=== PATIENT | female | born 1945 | race Caucasian/White ===

== ENCOUNTER 2016-08-07 23:00 | Emergency (ER) | payer MEDICARE, BC ==
[~2016-08-07] VITALS: Ht 149.9 cm; Wt 63.5 kg
[~2016-08-07 23:00] MED LIST: CEPH-570 PO; HYDR-3326 PO; MEDR2.5T PO; [UNRECOGNIZED DRUG - CODE] PO
[2016-08-07 23:12] VITALS: BP 135/75
== END 2016-08-08 00:50 | disposition home or self-care (01) ==
LOC: ER 23:03
DX: B86 Scabies (principal); I10 Essential (primary) hypertension; M81.0 Age-related osteoporosis without current pathological fracture
CPT/HCPCS: 99281; A4606; Z7502; Z7610

== ENCOUNTER 2016-08-24 19:26 | Emergency (ER) | payer MEDICARE, BC ==
[~2016-08-24] VITALS: Ht 175.3 cm; Wt 47.6 kg
[2016-08-24 19:43] VITALS: BP 112/56
--- NOTE | 2016-08-24 20:16 | NUR ---
PT WAS NOT IN ER BED OR BATHROOMS WHEN I WENT TO DISCHARGE HER. PT ELOPED FROM FACILITY.
== END 2016-08-24 20:21 | disposition left against medical advice (07) ==
LOC: ER 19:29
DX: L29.9 Pruritus, unspecified (principal); F41.9 Anxiety disorder, unspecified; F10.20 Alcohol dependence, uncomplicated; B86 Scabies
CPT/HCPCS: 99283; A4606; Z7610

== ENCOUNTER 2017-11-22 20:24 | Emergency (ER) | payer MEDICARE, BC ==
[~2017-11-22] VITALS: Ht 149.9 cm; Wt 45.4 kg
[~2017-11-22 20:24] MED LIST changes: -HYDR-3326 PO; +HYDR-3974 PO
[2017-11-22 20:32] VITALS: BP 169/91
== END 2017-11-22 22:34 | disposition home or self-care (01) ==
LOC: ER 20:26
DX: S92.425A Nondisplaced fracture of distal phalanx of left great toe, initial encounter for closed fracture (principal); S91.111A Laceration without foreign body of right great toe without damage to nail, initial encounter; S90.122A Contusion of left lesser toe(s) without damage to nail, initial encounter; E78.5 Hyperlipidemia, unspecified; F10.10 Alcohol abuse, uncomplicated; Y90.9 Presence of alcohol in blood, level not specified; Z90.49 Acquired absence of other specified parts of digestive tract; Z85.038 Personal history of other malignant neoplasm of large intestine; Z90.89 Acquired absence of other organs; W20.8XXA Other cause of strike by thrown, projected or falling object, initial encounter; Y93.89 Activity, other specified; Y92.89 Other specified places as the place of occurrence of the external cause; Y99.8 Other external cause status
CPT/HCPCS: 73630; 99284; A4606; Z7610

== ENCOUNTER 2017-11-29 21:10 | Emergency (ER) | payer MEDICARE, BC ==
[~2017-11-29] VITALS: Ht 149.9 cm; Wt 46.7 kg
--- NOTE | 2017-11-29 21:25 | NUR ---
PT BBSELF C/C LIGHTHEADED X COUPLE HRS, NOTICED BRIGHT RED BLOOD WHEN WIPING SELF TODAY. PT NOT SURE IF HEMORRHOIDS OR VB, DENIES ANY N/V/D. PT STATES GENERAL ABD DISCOMFORT NON RADIATING. PT IS AAOX4. SKIN WNL. NO S/S OF ACUTE DISTRESS NOTED. RESP EVEN AND UNLABORED. PT PLACED ON TRANSLATOR AND POX. PT SAFETY AND COMFORT MEASURES IN PLACE AWAITING MD FOR EVAL.
[2017-11-29 21:55] LABS: BASOPHILS # (AUTO) 0.1 /CMM (0.0-0.2); EOSINOPHILS % (AUTO) 1.7 % (0.0-6.0); HEMATOCRIT 42 % (33-45); LYMPHOCYTES # (AUTO) 2.3 /CMM (0.8-4.8); LYMPHOCYTES % (AUTO) 26.8 % (20.0-44.0); MEAN CORPUSCULAR HEMOGLOBIN 29 PG (26.0-33.0); MEAN CORPUSCULAR HGB CONC 33 g/dl (31.0-36.0); MEAN CORPUSCULAR VOLUME 87 fL (82-100); MONOCYTES # (AUTO) 0.6 /CMM (0.1-1.30); MONOCYTES % (AUTO) 7.3 % (2.0-12.0); NEUTROPHILS # (AUTO) 5.3 /CMM (1.8-8.9); NEUTROPHILS % (AUTO) 63.2 % (43.0-81.0); PLATELET COUNT (AUTO) 294 /CMM (150-450); RDW COEFFICIENT OF VARIATION 13.3 (11.5-15.0); RED BLOOD CELL COUNT(AUTO) 4.86 MIL/uL (4.0-5.2); WHITE BLOOD COUNT (AUTO) 8.4 K/uL (4.3-11.0)
[2017-11-29] MEDS ORDERED: IV NS 0.9% 500 ML BAG IV ONE (22:00)
[2017-11-29 22:08] LABS: CARBON DIOXIDE 29 mmol/L (21-32); CHLORIDE 101 mmol/L (98-107); CREATININE 0.7 mg/dL (0.6-1.3); GLUCOSE 88 mg/dL (74-106); POTASSIUM 4.1 mmol/L (3.5-5.1); SODIUM SERUM 137 mmol/L (136-145); UREA NITROGEN, BLOOD 10 mg/dL (7-18)
[2017-11-29 22:10] LABS: INR 0.9 (0.87-1.13)
[2017-11-29 22:13] LABS: ALANINE AMINOTRANSFERASE 16 U/L (12-78); ALBUMIN 4.1 g/dL (3.4-5.0); ALKALINE PHOSPHATASE 75 U/L (46-116); ASPARTATE AMINOTRANSFERASE 20 U/L (15-37); BILIRUBIN,DIRECT 0.1 mg/dL (0.0-0.2); BILIRUBIN,TOTAL 0.3 mg/dL (0.2-1.0); LIPASE 213 U/L (73-393); TOTAL PROTEIN, SERUM 7.9 g/dL (6.4-8.2)
[2017-11-29 22:15] LABS: TROPONIN I < 0.017 ng/mL (0.00-0.056)
[2017-11-29 22:45] VITALS: BP 144/76
== END 2017-11-29 22:46 | disposition home or self-care (01) ==
LOC: ER 21:11
DX: N93.8 Other specified abnormal uterine and vaginal bleeding (principal); S92.491D Other fracture of right great toe, subsequent encounter for fracture with routine healing; E78.5 Hyperlipidemia, unspecified; M81.0 Age-related osteoporosis without current pathological fracture; M19.90 Unspecified osteoarthritis, unspecified site; Z90.89 Acquired absence of other organs; Z90.49 Acquired absence of other specified parts of digestive tract; Z85.038 Personal history of other malignant neoplasm of large intestine; X58.XXXD Exposure to other specified factors, subsequent encounter
CPT/HCPCS: 36415; 80048; 80076; 83690; 84484; 85025; 85730; 86850; 93005; 99285; A4606; J7040; Z7610

== ENCOUNTER 2017-12-19 20:25 | Emergency (ER) | payer MEDICARE, BC ==
[~2017-12-19] VITALS: Ht 157.5 cm; Wt 46.3 kg
--- NOTE | 2017-12-19 21:00 | NUR ---
PT PRESENTS TO ER C/O R HAND SWELLING AND REDNESS S/P BEE STING YESTERDAY. REPORTS NAUSEA. DENIES V/D. DENIES FEVER, CHILLS. NO EXUDATE. AMBULATORY STEADY GAIT.
[2017-12-19 21:23] LABS: BASOPHILS % (AUTO) 0.5 % (0.0-2.0); EOSINOPHILS % (AUTO) 1.7 % (0.0-6.0); HEMATOCRIT 40 % (33-45); HEMOGLOBIN 13.4 g/dL (11.5-14.8); LYMPHOCYTES # (AUTO) 1.5 /CMM (0.8-4.8); LYMPHOCYTES % (AUTO) 19.8 % (20.0-44.0); MEAN CORPUSCULAR HEMOGLOBIN 29 PG (26.0-33.0); MEAN CORPUSCULAR HGB CONC 34 g/dl (31.0-36.0); MEAN CORPUSCULAR VOLUME 87 fL (82-100); MONOCYTES # (AUTO) 0.6 /CMM (0.1-1.30); MONOCYTES % (AUTO) 7.9 % (2.0-12.0); NEUTROPHILS # (AUTO) 5.3 /CMM (1.8-8.9); NEUTROPHILS % (AUTO) 70.1 % (43.0-81.0); PLATELET COUNT (AUTO) 241 /CMM (150-450); RDW COEFFICIENT OF VARIATION 13.3 (11.5-15.0); RED BLOOD CELL COUNT(AUTO) 4.59 MIL/uL (4.0-5.2); WHITE BLOOD COUNT (AUTO) 7.5 K/uL (4.3-11.0)
[2017-12-19] MEDS ORDERED: IV NS 0.9% 1,000 ML BAG IV ONE (21:30)
[2017-12-19] MEDS ORDERED: CEFTRIAXONE 1 G in IV D5W 50 ML IV ONE (21:30)
[2017-12-19] MEDS ORDERED: KETOROLAC TROMETHAMINE INJ 30 MG/ML VIAL IV ONE (21:30)
[2017-12-19] MEDS ORDERED: diphenhydrAMINE HCL ELIX 25 MG/10 ML UDC PO ONE (21:30)
[2017-12-19] MEDS ORDERED: predniSONE 20 MG TABLET PO ONE (21:30)
[2017-12-19] MEDS ORDERED: ONDANSETRON HCL/PF 4 MG/2 ML VIAL IVP ONE (21:30)
[2017-12-19] MEDS ORDERED: ONDANSETRON HCL/PF 4 MG/2 ML VIAL ONE (21:31)
[2017-12-19] MEDS ORDERED: KETOROLAC TROMETHAMINE 15 MG/ML VIAL ONE (21:31)
[2017-12-19 21:32] LABS: CALCIUM, SERUM 8.7 mg/dL (8.5-10.1); CARBON DIOXIDE 32 mmol/L (21-32); CHLORIDE 102 mmol/L (98-107); CREATININE 0.8 mg/dL (0.6-1.3); GLUCOSE 100 mg/dL (74-106); POTASSIUM 3.5 mmol/L (3.5-5.1); SODIUM SERUM 136 mmol/L (136-145); UREA NITROGEN, BLOOD 10 mg/dL (7-18)
[2017-12-19] MEDS ORDERED: diphenhydrAMINE HCL 25 MG CAPSULE ONE (21:32)
[2017-12-19] MEDS ORDERED: predniSONE 20 MG TABLET ONE (21:32)
[2017-12-19] MEDS ORDERED: CEFTRIAXONE 1 G VIAL ONE (21:39)
--- NOTE | 2017-12-19 21:53 | NUR ---
PT REFUSED PREDNISONE, BENADRYL, TORADOL, AND ZOFRAN DESPITE THOROUGH EDUCATION. PT STATES "I'M ONE OF THOSE PEOPLE WHO REACTS TO MEDICATIONS" AND REFUSES. NOTIFIED.
--- NOTE | 2017-12-19 22:14 | NUR ---
EDUCATED PT AGAIN ON RISKS OF NOT TAKING PREDNISONE, BENADRYL, ZOFRAN, AND TORADOL,, INCLUDING WORSENING OF INFECTION AND SWELLING. EXPLAINS BENEFITS AND RISKS. PT CONTINUES TO REFUSE.
--- NOTE | 2017-12-19 22:40 | NUR ---
IV removed. Catheter intact and site benign. Pressure and 4x4 applied to site. No bleeding noted. Patient discharged to home in stable condition. Written and verbal after care instructions given. Patient verbalizes understanding of instruction. NO SIGNS OF ADVERSE REACTION NOTED
[2017-12-19 23:09] VITALS: BP 131/80
== END 2017-12-19 23:10 | disposition home or self-care (01) ==
LOC: ER 20:30
DX: T63.441A Toxic effect of venom of bees, accidental (unintentional), initial encounter (principal); L03.113 Cellulitis of right upper limb; E78.5 Hyperlipidemia, unspecified; M81.0 Age-related osteoporosis without current pathological fracture; M19.90 Unspecified osteoarthritis, unspecified site; Z90.89 Acquired absence of other organs; Z85.038 Personal history of other malignant neoplasm of large intestine; X58.XXXA Exposure to other specified factors, initial encounter; Y92.89 Other specified places as the place of occurrence of the external cause
CPT/HCPCS: 36415; 73120; 80048; 85025; 96365; 99285; A4606; J0696; J7030; J7060 ×2; J1885; J2405; Q0163; Z7610

== ENCOUNTER 2018-09-01 02:57 | Emergency (ER) | payer BC, MEDICARE ==
[~2018-09-01] VITALS: Ht 149.9 cm; Wt 45.8 kg
--- NOTE | 2018-09-01 03:07 | NUR ---
ROMELIA FROM HOME. TO ER BED 2 AAOX4. NO SOB, BREATHING EVEN AND UNLABORED. AMBULATORY, TRANSFERED FROM [facility] TO BED WITH MIN ASSIST. C/O L WRIST PAIN, SHARP WITH SHOOTING SENSATION TO LEFT SHOULDER, 10/10 S/P GROUND LEVEL FALL, TRIPPED WHILE HIKING EARLIER AT 6PM. ACCORDING TO PT, SHE BROKE HER FALL USING HER LEFT HAND. NOTED SWELLING ON L WRIST WITH LIMITED MOBILITY. ABLE TO MOVE ALL FINGER OF LEFT HAND. AT BEDSIDE FOR GARRY.
[2018-09-01] MEDS ORDERED: ACETAMINOPHEN ES 500 MG TABLET ONE (03:15)
[2018-09-01] MEDS ORDERED: ACETAMINOPHEN ES 500 MG TABLET PO ONE (03:30)
--- NOTE | 2018-09-01 04:10 | NUR ---
XRAY AT BEDSIDE
--- NOTE | 2018-09-01 04:53 | NUR ---
Patient discharged to home in stable condition. Written and verbal after care instructions given. Patient verbalizes understanding of instruction.
--- NOTE | 2018-09-01 04:53 | NUR ---
Pt left ambulatory with a steady gait. pt assisted with taxi transport.
[2018-09-01 04:58] VITALS: BP 148/85
== END 2018-09-01 04:58 | disposition home or self-care (01) ==
LOC: ER 03:05
DX: S63.592A Other specified sprain of left wrist, initial encounter (principal); E78.5 Hyperlipidemia, unspecified; F10.10 Alcohol abuse, uncomplicated; Y90.9 Presence of alcohol in blood, level not specified; Z85.038 Personal history of other malignant neoplasm of large intestine; Z98.890 Other specified postprocedural states; Z90.89 Acquired absence of other organs; Z88.1 Allergy status to other antibiotic agents; W18.39XA Other fall on same level, initial encounter; Y93.89 Activity, other specified; Y92.89 Other specified places as the place of occurrence of the external cause; Y99.8 Other external cause status
CPT/HCPCS: 73060; 73090; 73110; 99283; L3763

== ENCOUNTER 2019-02-02 03:21 | Emergency (ER) | payer BC ==
[~2019-02-02] VITALS: Ht 149.9 cm; Wt 46.3 kg
[2019-02-02 03:31] VITALS: BP 147/85
== END 2019-02-02 04:01 | disposition home or self-care (01) ==
LOC: ER 03:23
DX: F41.9 Anxiety disorder, unspecified (principal); E78.5 Hyperlipidemia, unspecified; F10.10 Alcohol abuse, uncomplicated; Y90.9 Presence of alcohol in blood, level not specified; Z85.038 Personal history of other malignant neoplasm of large intestine; Z85.828 Personal history of other malignant neoplasm of skin; Z90.89 Acquired absence of other organs; Z88.1 Allergy status to other antibiotic agents

== ENCOUNTER 2019-04-01 19:48 | Emergency (ER) | payer BC ==
[~2019-04-01] VITALS: Ht 149.9 cm; Wt 46.7 kg
[2019-04-01 20:21] VITALS: BP 162/97
[2019-04-01] MEDS ORDERED: CEPHALEXIN MONOHYDRATE 500 MG CAPSULE PO ONE ×2 (20:47→21:00)
[2019-04-01] MEDS ORDERED: cetrizine 10 MG TABLET ONE (20:47)
[2019-04-01] MEDS ORDERED: cetrizine 10 MG TABLET PO ONE (21:00)
== END 2019-04-01 21:04 | disposition home or self-care (01) ==
LOC: ER 19:50
DX: S60.562A Insect bite (nonvenomous) of left hand, initial encounter (principal); E78.5 Hyperlipidemia, unspecified; F10.10 Alcohol abuse, uncomplicated; Y90.9 Presence of alcohol in blood, level not specified; Z85.038 Personal history of other malignant neoplasm of large intestine; Z85.828 Personal history of other malignant neoplasm of skin; Z90.89 Acquired absence of other organs; Z98.890 Other specified postprocedural states; Z88.1 Allergy status to other antibiotic agents; Z79.899 Other long term (current) drug therapy; W57.XXXA Bitten or stung by nonvenomous insect and other nonvenomous arthropods, initial encounter; Y93.89 Activity, other specified; Y92.89 Other specified places as the place of occurrence of the external cause; Y99.8 Other external cause status